=== PATIENT | male | born 1950 | race Caucasian/White ===

== ENCOUNTER 2023-09-01 15:03 | Outpatient (AMB) | payer MEDICARE, SELFPAY ==
--- NOTE | 2023-09-01 15:02 | HO.NEPHOV ---
Vital Signs 09/01/23 15:04 Height 5 ft 6 in Weight 198 lb BMI 32.0 BP 132/60 Blood Pressure Location Lt brachial Position Sitting Pulse 89 Pulse Source Pulse Oximeter Pulse Oximetry (%) 96 Oxygen Delivery Method Room Air Intake Visit Reasons: HTN, prev pt of Dr. Banuelos/ Kelvin w/Daughter Associate Art Director Required: No Accompanied by: Spouse Allergies No Known Allergies Allergy (Verified 09/01/23 15:07) HPI Comments Details: 72-year-old man with a history of resistant hypertension who has been referred for edema. He was previously seen by Dr. Banuelos. Since she has retired the family has decided to follow-up with me. Osman has had resistant hypertension for quite some time. He has undergone extensive workup. He is undergone 3 renal artery Dopplers in 2018 2021 and 2022. In 2018 there was no renal artery stenosis. In 2021 the report reads as more than 60% stenosis on the right side. However in 2022 both arteries were patent without any narrowing. 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 With compression of right L4 nerve root. Status post steroid injections. He has a lung nodule which is being monitored frequently. CT scan in 01/16/2023 revealed significant coronary artery calcification. There was moderate aortic valve calcification as well. Echocardiogram done recently at [facility] showed normal ejection fraction. Mild left ventricular hypertrophy. Mild aortic calcification. No aortic stenosis or insufficiency was reported. He has shortness of breath on exertion. He has a sit after walking 2830 ft. No cough no expectoration no chest pain. Pulmonary function test done back in 2016 was unremarkable no airway disease was noted. He has a history of smoking more than 1 pack per day for last several years. He is cut back to half a pack per day. As for the blood pressure he is on nifedipine 60 mg daily, losartan 100 mg and spironolactone 50 mg b.i.d.. Review of systems Yes shortness of breath on exertion which has been going on for last few years. No chest pain. No cough no expectoration. No nausea or vomiting. No polyuria polydipsia. He has increased frequency. No hematuria. No diarrhea constipation. No joint pain. No rash. He has bilateral breast swelling without significant pain. [facility] Social History (Updated 09/01/23 @ 15:08 by JEANINE Manning) Tobacco use type: Cigarette Physical Exam Vital Signs: Last Vital Signs Pulse 89 09/01/23 15:04 BP 132/60 09/01/23 15:04 Pulse Ox 96 09/01/23 15:04 Oxygen Delivery Method Room Air 09/01/23 15:04 BMI result Body Mass Index 32.0 Const General: comfortable Nutritional Appearance: well nourished Orientation/consciousness: patient oriented x3 HEENT Head: No normal to inspection Mouth: moist mucous membranes Neck Neck: Yes supple and Yes no JVD Chest Other: Gynecomastia present. Mild tenderness. No discharge Resp Auscultation: clear to auscultation bilaterally, no rales and rub present Cardio Jugular venous distension: no JVD Palpation: no palpable S3 and no palpable S4 Heart sounds: no rubs GI Palpation (GI): Soft to palpation and nontender Percussion: No Fluid wave present General: Yes no CVA tenderness Back/Spine/Pelvis Back: no CVA tenderness Skin General skin exam: no rashes or lesions noted Neuro General: patient oriented x3 Extrem General: Yes no pedal edema and No clubbing Results Reviewed Results Reviewed: Serum creatinine 0.99. Urine protein creatinine ratio was 0.07 in 02/16/2023. Nephrology Results: No Data to Display Assessment & Plan Assessment & Plan (1) Edema: Code(s): R60.9 - Edema, unspecified Category: Medical Plan: Edema is most likely due to calcium channel elsie. I will lower the dose of nifedipine from 60 mg down to 30 mg and see if any improvement in the leg edema If edema does not improve I will discontinue nifedipine. (2) HTN (hypertension): Code(s): I10 - Essential (primary) hypertension Category: Medical Plan: Hypertension Overall blood pressure is well controlled. However I am lowering the nifedipine from 60 mg down to 30 mg. I have encouraged him/family to monitor his blood pressure at home. Based on this if he needs additional antihypertensive agent I will consider adding hydralazine. Discussed importance of low-salt diet and smoking cessation (3) Shortness of breath: Code(s): R06.02 - Shortness of breath Category: Medical Plan: Exact etiology for his shortness of breath remains unclear. He is history of chronic smoking. However the pulmonary function test was unremarkable for any obstructive or restrictive lung disease. Recent echocardiogram revealed normal ejection fraction without evidence of significant LVH. Valves were unremarkable. The CT scan of the chest in 01/16/2023 was reported as severe coronary artery calcification. I have taken liberty of referring him for cardiac evaluation. (4) Gynecomastia: Code(s): N62 - Hypertrophy of breast Category: Medical Plan: This may be due to the use of spironolactone. Currently he is asymptomatic. Medications: New nifedipine ER 30 mg PO DAILY 30 tabs 2RF Coding Level of Care Code New Pt Level 5 (86310) Diagnoses Edema R60.9 HTN (hypertension) I10 Shortness of breath R06.02 Gynecomastia N62
[2023-09-01 15:04] VITALS: BP 132/60; PULSE 89; O2SAT 96; BMI 32.0
== END 2023-09-01 15:46 | disposition home or self-care (01) ==
PROVIDERS: PCP Internal Medicine; Visit Provider Internal Medicine Hypertension Specialist
DX: R60.9 Edema, unspecified (principal); I10 Essential (primary) hypertension; R06.02 Shortness of breath; N62 Hypertrophy of breast
CPT/HCPCS: 99204

== ENCOUNTER → 2023-09-01 15:03 | Outpatient (BNVA) | payer MEDICARE, SELFPAY | PROVIDERS: PCP Internal Medicine; Visit Provider Internal Medicine Hypertension Specialist | DX: R60.9 Edema, unspecified (principal); I10 Essential (primary) hypertension; R06.02 Shortness of breath; N62 Hypertrophy of breast | CPT/HCPCS: 99202 ==

== ENCOUNTER 2023-10-05 09:58 | Outpatient (AMB) | payer MEDICARE, SELFPAY ==
[2023-10-05 10:01] VITALS: BP 132/60; PULSE 75; O2SAT 96; BMI 32.4
--- NOTE | 2023-10-05 10:01 | HO.NEPHOV_ITS ---
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 He was previously seen by Dr. Banuelos. Since she has retired the family has decided to follow-up with me. Osman has had resistant hypertension for quite some time. He has undergone extensive workup. He is undergone 3 renal artery Dopplers in 2019 2021 and 2022. In 2019 there was no renal artery stenosis. In 2021 the report reads as more than 60% stenosis on the right side. However in 2022 both arteries were patent without any narrowing. 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 With compression of right L4 nerve root. Status post steroid injections. He has a lung nodule which is being monitored frequently. CT scan in 01/16/2023 revealed significant coronary artery calcification. There was moderate aortic valve calcification as well. Echocardiogram done recently at [facility] showed normal ejection fraction. Mild left ventricular hypertrophy. Mild aortic calcification. No aortic stenosis or insufficiency was reported. He has shortness of breath on exertion. He has a sit after walking 2830 ft. No cough no expectoration no chest pain. Pulmonary function test done back in 2016 was unremarkable no airway disease was noted. He has a history of smoking more than 1 pack per day for last several years. He is cut back to half a pack per day. As for the blood pressure he is on nifedipine 60 mg daily, losartan 100 mg and spironolactone 50 mg b.i.d.. Review of systems Yes shortness of breath on exertion which has been going on for last few years. No chest pain. No cough no expectoration. No nausea or vomiting. No polyuria polydipsia. He has increased frequency. No hematuria. No diarrhea constipation. No joint pain. No rash. He has bilateral breast swelling without significant pain. 10/05/2023. He was accompanied by his family. After lowering nifedipine there has been no improvement in the leg edema. No shortness of breath at rest however he has shortness of breath on exertion Continue smoked cigarettes up to 10 a day. [facility] Social History Tobacco use type: Cigarette Physical Exam Vital Signs: Last Vital Signs Pulse 75 10/05/23 10:01 BP 132/60 10/05/23 10:01 Pulse Ox 96 10/05/23 10:01 Oxygen Delivery Method Room Air 10/05/23 10:01 BMI result Body Mass Index 32.4 Const General: comfortable Nutritional Appearance: well nourished Orientation/consciousness: patient oriented x3 HEENT Head: No normal to inspection Mouth: moist mucous membranes Neck Neck: Yes supple and Yes no JVD Chest Other: Gynecomastia present. Mild tenderness. No discharge Resp Auscultation: clear to auscultation bilaterally, no rales and rub present Cardio Jugular venous distension: no JVD Palpation: no palpable S3 and no palpable S4 Heart sounds: no rubs GI Palpation (GI): Soft to palpation and nontender Percussion: No Fluid wave present General: Yes no CVA tenderness Back/Spine/Pelvis Back: no CVA tenderness Skin General skin exam: no rashes or lesions noted Neuro General: patient oriented x3 Extrem General: Yes no pedal edema and No clubbing Results Reviewed Nephrology Results: No Data to Display Assessment & Plan Assessment & Plan (1) Edema: Code(s): R60.9 - Edema, unspecified Category: Medical Plan: Edema is most likely due to calcium channel elsie. (2) HTN (hypertension): Code(s): I10 - Essential (primary) hypertension Category: Medical Plan: Hypertension Overall blood pressure is well controlled. Discussed importance of low-salt diet and smoking cessation (3) Shortness of breath: Code(s): R06.02 - Shortness of breath Category: Medical Plan: Exact etiology for his shortness of breath remains unclear. He is history of chronic smoking. However the pulmonary function test was unremarkable for any obstructive or restrictive lung disease. Recent echocardiogram revealed normal ejection fraction without evidence of significant LVH. Valves were unremarkable. The CT scan of the chest in 01/16/2023 was reported as severe coronary artery calcification. Await cardiac evaluation. (4) Gynecomastia: Code(s): N62 - Hypertrophy of breast Category: Medical Plan: This may be due to the use of spironolactone. Currently he is asymptomatic. Orders: Referrals Cardiology Referral I25.10 - Atherosclerotic heart disease of [place] coronary artery without angina pectoris, R06.02 - Shortness of breath, R60.9 - Edema, unspecified Coding Level of Care Code Est Pt Level 4 (57271) Diagnoses Edema R60.9 HTN (hypertension) I10 Shortness of breath R06.02 Gynecomastia N62
== END 2023-10-05 10:19 | disposition home or self-care (01) ==
PROVIDERS: PCP Internal Medicine; Visit Provider Internal Medicine Hypertension Specialist
DX: R60.9 Edema, unspecified (principal); I10 Essential (primary) hypertension; R06.02 Shortness of breath; N62 Hypertrophy of breast
CPT/HCPCS: 99214

== ENCOUNTER → 2023-10-05 09:58 | Outpatient (BNVA) | payer MEDICARE, SELFPAY | PROVIDERS: PCP Internal Medicine; Visit Provider Internal Medicine Hypertension Specialist | DX: I10 Essential (primary) hypertension (principal); R60.9 Edema, unspecified; R06.02 Shortness of breath; N62 Hypertrophy of breast | CPT/HCPCS: 99212 ==

== ENCOUNTER 2023-12-31 09:44 | Outpatient (AMB) | payer MEDICARE, SELFPAY ==
[2023-12-31 09:48] VITALS: BP 146/72; PULSE 95; O2SAT 97; BMI 31.5
--- NOTE | 2023-12-31 09:48 | HO.NEPHOV ---
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 He was previously seen by Dr. Banuelos. Since she has retired the family has decided to follow-up with me. Osman has had resistant hypertension for quite some time. He has undergone extensive workup. He is undergone 3 renal artery Dopplers in 2018 2021 and 2022. In 2019 there was no renal artery stenosis. In 2021 the report reads as more than 60% stenosis on the right side. However in 2022 both arteries were patent without any narrowing. 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 With compression of right L4 nerve root. Status post steroid injections. He has a lung nodule which is being monitored frequently. CT scan in 01/16/2023 revealed significant coronary artery calcification. There was moderate aortic valve calcification as well. Echocardiogram done recently at [facility] showed normal ejection fraction. Mild left ventricular hypertrophy. Mild aortic calcification. No aortic stenosis or insufficiency was reported. He has shortness of breath on exertion. He has a sit after walking 2830 ft. No cough no expectoration no chest pain. Pulmonary function test done back in 2016 was unremarkable no airway disease was noted. He has a history of smoking more than 1 pack per day for last several years. He is cut back to half a pack per day. As for the blood pressure he is on nifedipine 60 mg daily, losartan 100 mg and spironolactone 50 mg b.i.d.. Review of systems Yes shortness of breath on exertion which has been going on for last few years. No chest pain. No cough no expectoration. No nausea or vomiting. No polyuria polydipsia. He has increased frequency. No hematuria. No diarrhea constipation. No joint pain. No rash. He has bilateral breast swelling without significant pain. 10/05/2023. He was accompanied by his family. After lowering nifedipine there has been no improvement in the leg edema. No shortness of breath at rest however he has shortness of breath on exertion Continue smoked cigarettes up to 10 a day. 12/31/2023. Accompanied by his family. He still has shortness of breath on exertion. No change in leg edema. He continues to smoke up to 10 cigarettes a day [facility] Social History Tobacco use type: Cigarette Physical Exam Vital Signs: Last Vital Signs Pulse 95 12/31/23 09:48 BP 132/64 12/31/23 10:01 Pulse Ox 97 12/31/23 09:48 Oxygen Delivery Method Room Air 12/31/23 09:48 BMI result Body Mass Index 31.5 Const General: comfortable; No acute distress Orientation/consciousness: patient oriented x3 Eyes General: appearance normal, both eyes and all related structures Visual Pierce: normal visual pierce by confrontation Neck Neck: Yes supple and Yes no JVD Resp Effort & Inspection: normal respiratory effort and respiratory effort not decreased Auscultation: rhonchi Cardio Palpation: no palpable S3 and no palpable S4 Heart sounds: no rubs GI Inspection: Yes normal to inspection Palpation (GI): Soft to palpation Percussion: Yes normal to percussion Auscultation: normal bowel sounds General: Yes no CVA tenderness Back/Spine/Pelvis Back: no CVA tenderness Skin General skin exam: no petechiae and no purpura Neuro General: patient oriented x3 and no focal motor deficits Extrem General: No clubbing and Yes edema (1+) Results Reviewed Results Reviewed: Recent creatinine 0.88 Nephrology Results: No Data to Display Assessment & Plan Assessment & Plan (1) Edema: Code(s): R60.9 - Edema, unspecified Category: Medical Plan: Edema is most likely due to calcium channel elsie. (2) HTN (hypertension): Code(s): I10 - Essential (primary) hypertension Category: Medical Plan: Hypertension Overall blood pressure is well controlled. Discussed importance of low-salt diet and smoking cessation (3) Shortness of breath: Code(s): R06.02 - Shortness of breath Category: Medical Plan: He is history of chronic smoking. However the pulmonary function test was unremarkable for any obstructive or restrictive lung disease. Recent echocardiogram revealed normal ejection fraction without evidence of significant LVH. Valves were unremarkable. The CT scan of the chest in 01/16/2023 was reported as severe coronary artery calcification. Shall add Lasix 20 mg p.o. daily Await cardiac evaluation. (4) Gynecomastia: Code(s): N62 - Hypertrophy of breast Category: Medical Plan: This may be due to the use of spironolactone. Currently he is asymptomatic. Orders: Orders Basic Metabolic Panel 6 Months R06.02 - Shortness of breath, R60.9 - Edema, unspecified Medications: New furosemide (Lasix) 20 mg PO DAILY 90 tabs 1RF Coding Level of Care Code Est Pt Level 4 (35951) Diagnoses Edema R60.9 HTN (hypertension) I10 Shortness of breath R06.02 Gynecomastia N62
[2023-12-31 10:01] VITALS: BP 132/64
== END 2023-12-31 10:08 | disposition home or self-care (01) ==
PROVIDERS: PCP Internal Medicine; Visit Provider Internal Medicine Hypertension Specialist
DX: R60.9 Edema, unspecified (principal); I10 Essential (primary) hypertension; R06.02 Shortness of breath; N62 Hypertrophy of breast
CPT/HCPCS: 99213

== ENCOUNTER → 2023-12-31 09:44 | Outpatient (BNVA) | payer MEDICARE, SELFPAY | PROVIDERS: PCP Internal Medicine; Visit Provider Internal Medicine Hypertension Specialist | DX: I10 Essential (primary) hypertension (principal); R60.9 Edema, unspecified; R06.02 Shortness of breath; N62 Hypertrophy of breast | CPT/HCPCS: 99212 ==

== ENCOUNTER 2024-01-06 08:16 | Outpatient (AMB) | payer MEDICARE, SELFPAY ==
[2024-01-06 08:30] VITALS: BP 160/70; PULSE 76; BMI 30.9
--- NOTE | 2024-01-06 08:30 | MHC.OFFVIS ---
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 Disease Mechanical Maintenance Supervisor Required: No Mechanical Maintenance Supervisor Services: Mechanical Maintenance Supervisor Offered & Declined Mechanical Maintenance Supervisor Name: Radha-daughter Accompanied by: Spouse Allergies No Known Allergies Allergy (Verified 12/31/23 09:52) Medication List - Last Reconciled 01/06/24 by Nando Bowen MD aspirin 81 mg PO DAILY bupropion HCl XL 150 mg PO QAM finasteride 5 mg PO DAILY furosemide (Lasix) 20 mg PO DAILY losartan 100 mg PO DAILY metformin 500 mg PO DAILY nifedipine ER 30 mg PO DAILY omeprazole 20 mg PO DAILY simvastatin 20 mg PO BEDTIME spironolactone 50 mg PO BID tamsulosin 0.4 mg PO DAILY HPI Comments Details: Osman is here for consultation regarding leg swelling and shortness of breath. Patient speaks Greenlandic only and family is assisting with interpretation. Essentially, no previous cardiac history including coronary disease or myocardial infarction or cardiomyopathy or anything along those lines. Chronic smoker and still smokes. However, not known to have any COPD per family. For the last several years, he has felt short of breath with activity. In fact any form of activity makes him short of breath. No anginal-type symptoms. He has also been having some leg swelling over the last few months. Nephrology as put him on some Lasix and after that he has felt better. Otherwise, he also underwent a chest CT scan due to smoking history and that shows coronary calcification. [facility] Surgical History (Updated 01/06/24 @ 08:58 by Nando Bowen MD) History of cholecystectomy History of appendectomy Family History (Updated 01/06/24 @ 08:39 by Francesca Mckeon CMA) Brother Stroke Social History (Updated 01/06/24 @ 08:39 by Francesca Mckeon CMA) Alcohol intake: current Alcohol intake frequency: holidays/special occasions only Tobacco use type: Cigarette Review of Systems Const Denies chills, Denies daytime sleepiness, Denies fatigue, Denies fever(s), Denies poor appetite, Denies snoring, Denies stops breathing during sleep, Denies weakness, Denies weight gain and Denies weight loss Eyes Denies loss of vision ENT Denies dizziness and Denies hearing loss Card Denies chest pain, Denies irregular heart rhythm, Denies claudication, Reports leg edema, Denies lightheadedness, Denies palpitations, Reports dyspnea, Denies dyspnea on exertion and Denies orthopnea Resp Denies cough, Denies excessive phlegm production, Reports dyspnea, Denies dyspnea on exertion, Denies snoring and Denies wheezing GI Denies abdominal pain, Denies hematochezia, Denies change in bowel habits, Denies nausea and Denies vomiting Denies dysuria and Denies urinary frequency Musc Denies arthralgias, Denies muscle weakness, Denies numbness and Denies other Skin/Breast Denies nail changes and Denies rash Neuro Denies Abnormal speech present, Denies dizziness, Denies loss of vision, Denies memory loss, Denies numbness and Denies weakness Psych Denies depression and Denies memory loss Endo Denies fatigue and Denies palpitations Titi/Lymph Denies easy bruising Aller/Immun Denies wheezing Physical Exam Vital Signs: Last Vital Signs Pulse 76 01/06/24 08:30 BP 160/70 H 01/06/24 08:30 BMI result Body Mass Index 30.9 Const General: comfortable and no acute distress Orientation/consciousness: patient oriented x3 HEENT Other: Unremarkable Head: Yes normal to inspection Neck Neck: Yes normal visual inspection Chest Chest palpation & inspection: normal inspection of the chest Resp Auscultation: clear to auscultation bilaterally Cardio Palpation: normal PMI Heart sounds: S1 normal heart sound present, S2 normal heart sound present, no gallops, Murmur heart sound present systolic II/ and at the right sternal border and no rubs GI Palpation (GI): Soft to palpation Back/Spine/Pelvis Other: unremarkable Skin General skin exam: no rashes or lesions noted Neuro General: patient oriented x3 Speech: No Abnormal speech present Extrem General: Yes normal to inspection Psych Mental Status: mental status grossly normal Office Procedures EKG Details: EKG with underlying sinus rhythm at 76/Min; [place] prolongation to 110 milliseconds; normal corrected QT; no significant ST-T changes. [id number], Complete Assessment & Plan Assessment & Plan (1) Edema: Code(s): R60.9 - Edema, unspecified Category: Medical Plan: In the echocardiogram from [facility], LVEF is 55-65%. Diastolic function was not assessed. Right ventricle with normal size and systolic function with normal right atrial size. IVC described to be of normal size with normal inspiratory collapse. Based on this, no clear evidence of elevated right heart filling pressures. Hence suspect the leg swelling is probably not cardiac in nature. Could be related to medications like nifedipine as well as venous insufficiency. Try compression stockings. Okay to continue low-dose Lasix. (2) Coronary artery calcification: Code(s): I25.10 - Atherosclerotic heart disease of [place] coronary artery without angina pectoris Category: Medical Plan: Chest CT scan shows severe coronary artery calcification as well as moderate aortic calcification. We discussed about this today. He does not have any clear-cut angina. Will perform an exercise stress perfusion imaging study. Daughter states that she will assist with the test as he does not speak Turkish. If unable to do, consider Lexiscan. (3) HTN (hypertension): Code(s): I10 - Essential (primary) hypertension Category: Medical Plan: Current meds include losartan, nifedipine, spironolactone. Blood pressure is already actively addressed by Nephrology and hence no changes made today. Orders: Orders CA stress test Today R07.2 - Precordial pain NM cardiolite stress test Today R07.2 - Precordial pain Coding Level of Care Code New Pt Level 4 (54830) Diagnoses Edema R60.9 Coronary artery calcification I25.10 HTN (hypertension) I10 CPT Codes EKG - CPT: 85066-[id number], Complete ([id number])
== END 2024-01-06 09:04 | disposition home or self-care (01) ==
PROVIDERS: PCP Internal Medicine; Visit Provider Internal Medicine
DX: R60.9 Edema, unspecified (principal); I25.10 Atherosclerotic heart disease of native coronary artery without angina pectoris; I10 Essential (primary) hypertension
CPT/HCPCS: 93010; 99204

== ENCOUNTER → 2024-01-06 08:16 | Outpatient (BNVA) | payer MEDICARE, SELFPAY | PROVIDERS: PCP Internal Medicine; Visit Provider Internal Medicine | DX: I25.10 Atherosclerotic heart disease of native coronary artery without angina pectoris (principal); I10 Essential (primary) hypertension; R07.2 Precordial pain; R06.02 Shortness of breath; R60.9 Edema, unspecified; F17.210 Nicotine dependence, cigarettes, uncomplicated; Z79.899 Other long term (current) drug therapy | CPT/HCPCS: 93005; 99202 ==

== ENCOUNTER → 2024-03-25 07:58 | Outpatient (REF) | payer MEDICARE, SELFPAY ==
--- NOTE | ~2024-03-25 | NM_ITS ---
EXERCISE MYOCARDIAL PERFUSION STUDY INDICATION: Precordial chest pain TECHNIQUE: The patient was brought in for an exercise perfusion study on 03/25/2024. Patient performed exercise as per Dawson protocol and was injected 30 mCi of sestamibi once target heart rate was achieved. Images were obtained using the SPECT gamma camera interlaced with the gating device. Images were obtained in supine position. Resting perfusion study was performed on 03/29/2024. Patient was administered 30 mCi of sestamibi intravenously at rest. Images were then obtained in supine position. Images obtained without without CT attenuation. Total DLP 93 mGy-cm. Images were processed with the software and compared side to side in short axis, horizontal long axis and vertical long axis views. FINDINGS: Raw images were reviewed The stress perfusion study showed nonattenuated images show mildly reduced uptake in the basal inferior and inferoseptal LV myocardium. Attenuated corrected images show normal uptake of radiotracer in all segments of the LV myocardium. The gated study shows normal LV systolic function with calculated LVEF of 67%. LV cavity is normal in size. The gated study shows normal systolic wall thickening and contraction of segments. Resting study shows no change in perfusion pattern compared to stress perfusion study. Gating at rest reveals normal systolic wall motion with ejection fraction at greater than 60%. The findings are consistent with no reversible defect suggestive of ischemia. NM/NM cardiolite stress test IMPRESSION: 1. Myocardial perfusion imaging study shows normal myocardial perfusion. 2. Gated LVEF is 67%. 3. Transient ischemic dilatation not present. EKG revealed equivocal for ischemia in the vocal for ischemia. Electronically signed by: Moris Spivey MD 03/30/2024 11:54 AM [facility]
--- NOTE | 2024-03-25 08:03 | CA_ITS ---
Acquisition Time: 2024-03-25 08:17:01 Total Exercise Time: 00:05:01 Test Indications: Dyspnea LEG EDEMA Medications: ASA BUPRION FINASTERIDE FUROSEMIDE METFORMIN NIFEDIPINE OMEPRAZOLE TAMSULOSIN SPIRONALACTONE Protocol: GARTH Max HR: 130 BPM 90% of Pred: 144 BPM Max BP: 180/068 mmHG Max Work Load: 4.0 METS Exercise Stress Test with exercise 5 mins 1 secs of Garth protocol, held at stage 1, that required modification as soon as pt started walking on the tread due to hard time walking, speed at 1.4mph with 10% incline, achieving 88% MPHR, without any anginal symptoms, without any arrythmias, with normotensive response to exercise. With downsloping ST changes noted in V6 only with exercise, had baseline nonspecific ST abnormalities. Nuclear images pending. Test reviewed with Dr. Stevenson. Referred By: Nando Bowen Overread By: Mykel Alvarez
== END ==
LOC: HO.CARD 07:58
PROVIDERS: PCP Internal Medicine; Visit Provider Internal Medicine
DX: R07.2 Precordial pain (principal)
CPT/HCPCS: 78452; 93017; A9500

== ENCOUNTER → 2024-03-25 08:03 | Outpatient (BNV) | payer MEDICARE, SELFPAY | PROVIDERS: PCP Internal Medicine | DX: R06.02 Shortness of breath (principal) | CPT/HCPCS: 78452; 93016; 93018 ==

== ENCOUNTER 2024-04-28 14:59 | Outpatient (AMB) | payer MEDICARE, SELFPAY ==
[2024-04-28 15:02] VITALS: BP 168/62; PULSE 87; BMI 31.6
--- NOTE | 2024-04-28 15:02 | MHC.OFFVIS ---
Vital Signs 04/28/24 15:02 Height 5 ft 6 in Weight 195 lb 12.328 oz BMI 31.6 BP 168/62 H Blood Pressure Location Lt brachial Position Sitting Pulse 87 Pulse Source Pulse Oximeter Intake Visit Reasons: r/s 03/14/24 followup after jenae Data Reporting Analyst Required: Yes Data Reporting Analyst Services: Data Reporting Analyst Offered & Declined Data Reporting Analyst Name: Daughter Accompanied by: Daughter Allergies No Known Allergies Allergy (Verified 12/31/23 09:52) Medication List - Last Reconciled 04/28/24 by Nando Bowen MD aspirin 81 mg PO DAILY bupropion HCl XL 150 mg PO QAM finasteride 5 mg PO DAILY furosemide (Lasix) 20 mg PO DAILY losartan 100 mg PO DAILY metformin 500 mg PO DAILY nifedipine ER 30 mg PO DAILY omeprazole 20 mg PO DAILY simvastatin 20 mg PO BEDTIME spironolactone 50 mg PO BID tamsulosin 0.4 mg PO DAILY HPI Comments Details: Osman returns for follow-up. Recently seen in consultation regarding leg swelling and shortness of breath. Patient only speaks Austrian and daughter is accompanying him for interpretation. Essentially, no previous cardiac history including coronary disease or myocardial infarction or cardiomyopathy or anything along those lines. Chronic smoker and still smokes. However, not known to have any COPD per family. For the last several years, he has felt short of breath with activity. No anginal-type symptoms. He has also been having some leg swelling over the last few months. Nephrology as put him on some Lasix and after that he has felt better. Otherwise, he also underwent a chest CT scan due to smoking history and that shows coronary calcification. Since last seen, he has completed a stress test. No new concerns. No angina. [facility] Surgical History History of cholecystectomy History of appendectomy Family History Brother Stroke Social History Alcohol intake: current Alcohol intake frequency: holidays/special occasions only Tobacco use type: Cigarette Review of Systems Const Denies chills, Denies fatigue, Denies fever(s), Denies weight gain and Denies weight loss ENT Denies dizziness Card Denies chest pain, Denies leg edema, Denies lightheadedness, Denies palpitations, Denies dyspnea on exertion, Denies orthopnea and Denies other Resp Denies cough and Denies dyspnea on exertion GI Denies hematochezia and Denies change in stool character Musc Denies abnormal gait, Denies muscle weakness, Denies numbness, Denies radiating pain into limb and Denies tingling Neuro Denies abnormal gait, Denies dizziness, Denies numbness and Denies tingling Endo Denies fatigue and Denies palpitations Physical Exam Vital Signs: Last Vital Signs Pulse 87 04/28/24 15:02 BP 168/62 H 04/28/24 15:02 BMI result Body Mass Index 31.6 Const General: comfortable and no acute distress Orientation/consciousness: patient oriented x3 HEENT Other: Unremarkable Head: Yes normal to inspection Neck Neck: Yes normal visual inspection Chest Chest palpation & inspection: normal inspection of the chest Resp Auscultation: rhonchi Cardio Palpation: normal PMI Heart sounds: S1 normal heart sound present, S2 normal heart sound present, no gallops, Murmur heart sound present systolic II/ and at the right sternal border and no rubs GI Palpation (GI): Soft to palpation Back/Spine/Pelvis Other: unremarkable Skin General skin exam: no rashes or lesions noted Neuro General: patient oriented x3 Extrem Other: 1+ edema General: Yes normal to inspection Psych Mental Status: mental status grossly normal Assessment & Plan Assessment & Plan (1) Coronary artery calcification: Code(s): I25.10 - Atherosclerotic heart disease of [place] coronary artery without angina pectoris Category: Medical Plan: Chest CT scan shows severe coronary artery calcification as well as moderate aortic calcification. In the exercise stress test, he was able to do 4 METS on Dawson protocol; reached 90% of target heart rate. No angina. No definitive EKG evidence of ischemia. Perfusion part was also unremarkable. Clinically, he does not get any angina. Treat for stable CAD. Continue aspirin and statins. We need to get lipids from PCP. If necessary, can switch to high-dose Lipitor or Crestor. (2) HTN (hypertension): Code(s): I10 - Essential (primary) hypertension Category: Medical Plan: Current meds include losartan, nifedipine, spironolactone. It seems the nifedipine dose was decreased because of leg swelling. Add carvedilol. He does have some wheezing but not much. Hopefully can tolerate. Not much of options otherwise. Asked daughter to contact us with home blood pressure readings. May need further adjustments. (3) Edema: Code(s): R60.9 - Edema, unspecified Category: Medical Plan: In the echocardiogram from [facility], LVEF is 55-65%. Diastolic function was not assessed. Right ventricle with normal size and systolic function with normal right atrial size. IVC described to be of normal size with normal inspiratory collapse. Based on this, no clear evidence of elevated right heart filling pressures. Hence suspect the leg swelling is probably not cardiac in nature. Could be related to medications like nifedipine as well as venous insufficiency. He remains on low-dose Lasix. May try compression stockings. Plan Discussed with daughter who came for appointment. Medications: New carvedilol (Coreg) 6.25 mg PO BID 180 tabs 1RF 90 days Coding Level of Care Code Est Pt Level 4 (39586) Diagnoses Coronary artery calcification I25.10 HTN (hypertension) I10 Edema R60.9
--- OUTSIDE RECORDS SUMMARY | 2024-04-28 18:53 | XMS_ITS | Clinical Summary ---
Author Organization [facility] Address [address] [address] Phone Care Team Providers Care Black Top Raker Name Role Phone Cedrick Terrazas Primary Care Provider [phone] Allergies No known active allergies Medications aspirin (ST TERESA) 81 MG EC tablet Take 81 mg by mouth 1 (one) time each day Active tamsulosin (FLOMAX) 0.4 MG 24 hr capsule Take 0.4 mg by mouth 1 (one) time each day Active simvastatin (ZOCOR) 20 MG tablet Take 20 mg by mouth every night Active metFORMIN (GLUCOPHAGE) 500 MG tablet Take 500 mg by mouth 1 (one) time each day with breakfast Active omeprazole (PriLOSEC) [address] capsule Take by mouth 1 (one) time each day 2 Active finasteride (PROSCAR) 5 MG tablet Take 5 mg by mouth 1 (one) time each day 2 Active losartan (COZAAR) 100 MG tablet TAKE 1 TABLET BY MOUTH 1 TIME EACH DAY. 90 tablet 3 3 Active spironolactone (ALDACTONE) 50 MG tablet TAKE 1 TABLET BY MOUTH 1 TIME EACH DAY. 90 tablet 3 3 Active NIFEdipine CC (ADALAT CC) 60 MG 24 hr tablet TAKE 1 TABLET BY MOUTH ONCE DAILY BEFORE BREAKFAST *DO NOT CRUSH/CHEW/SPL IT* 90 tablet 3 3 Active Active Problems Problem Noted Date Diagnosed Date Type 2 diabetes mellitus without complication Murmur 02/23/2023 Renal artery stenosis 02/04/2022 Hypokalemia 07/15/2021 Hypercholesterolemia 07/10/2021 Essential (primary) hypertension 07/10/2021 Family History Medical History Relation Comments Heart disease Father Hypertension Father Heart disease Mother Hypertension Mother Diabetes Sister Heart disease Sister Hypertension Sister Relation Status Comments Father Mother Sister Alive Social History Tobacco Use Types Packs/Day Years Used Date Smoking Tobacco: Some Days Cigarettes Smokeless Tobacco: Never Tobacco Cessation:Ready to Q uit: Not Asked; Counseling Given: Not Answered Alcohol Use Standard Drinks/Week Comments Yes 2 (1 standard drink = 0.6 oz pure alcohol) 1 glass of wine with lunch and dinner Sex and Gender Information Value Date Recorded Sex Assigned at Not on file Legal Sex Male 4:03 PM EDT Gender Identity Not on file Sexual Orientation Not on file Last Filed Vital Signs Vital Sign Reading Time Taken Comments Blood Pressure 136/62 02/23/2023 8:55 AM EST Pulse 98 02/23/2023 8:55 AM EST Temperature - - Respiratory Rate - - Oxygen Saturation 100% 02/23/2023 8:55 AM EST Inhaled Oxygen Concentration - - Weight 88.1 kg (194 lb 3.2 oz) 02/23/2023 8:55 A M EST Height 167.6 cm (5' 6 ) 02/23/2023 8:55 AM EST Body Mass Index 31.34 02/23/2023 8:55 AM EST Plan of Treatment Health Maintenance Due Date Last Done Comments Pneumococcal Vaccine: 65+ Ye ars (1 of 2 - PCV) 1956 Diabetes: Hemoglobin A1C 02/23/2023 Diabetes: Ophthalmology Exam 02/23/2023 Diabetes: Pedal Pulse Checked 02/23/2023 Diabetes: Sensory Foot Exam 02/23/2023 Diabetes: Visual Foot Exam 02/23/2023 Influenza Vaccine (#1) 2023 Hepatitis B Vaccine Aged Out No longe r eligible based on patient's age to complete this topic [place] [address] [place] [address] Care Teams Black Top Raker Relationship Specialty Start Date End Date Cedrick Terrazas DO [address] [place] [address] PCP - General Internal Medicine 06/25/21
== END 2024-04-28 15:27 | disposition home or self-care (01) ==
PROVIDERS: PCP Internal Medicine; Visit Provider Internal Medicine
DX: I25.10 Atherosclerotic heart disease of native coronary artery without angina pectoris (principal); I10 Essential (primary) hypertension; R60.9 Edema, unspecified
CPT/HCPCS: 99214

== ENCOUNTER → 2024-04-28 14:59 | Outpatient (BNVA) | payer MEDICARE, SELFPAY | PROVIDERS: PCP Internal Medicine; Visit Provider Internal Medicine | DX: I25.10 Atherosclerotic heart disease of native coronary artery without angina pectoris (principal); I10 Essential (primary) hypertension; R60.9 Edema, unspecified; F17.210 Nicotine dependence, cigarettes, uncomplicated | CPT/HCPCS: 99212 ==

== ENCOUNTER 2024-06-15 07:49 | Outpatient (REF) | payer MEDICARE, SELFPAY ==
[2024-06-15 09:02] LABS: Anion Gap 10 (12-20); Blood Urea Nitrogen 15 mg/dL (9-16); Calcium 9.5 mg/dL (8.4-10.2); Carbon Dioxide 30 mmol/L (22-29); Chloride 105 mmol/L (96-108); Estimated Glomerular Filt Rate > 60; Glucose Random 146 mg/dL (60-115); Potassium 3.4 mmol/L (3.3-5.1); Sodium 142 mmol/L (135-145)
== END 2024-06-15 07:50 | disposition home or self-care (01) ==
LOC: HO.LAB 07:49
PROVIDERS: Internal Medicine; PCP Internal Medicine; Visit Provider Internal Medicine Hypertension Specialist
DX: I25.10 Atherosclerotic heart disease of native coronary artery without angina pectoris (principal); I10 Essential (primary) hypertension; R60.9 Edema, unspecified
CPT/HCPCS: 36415; 80048

== ENCOUNTER 2024-07-14 14:54 | Outpatient (AMB) | payer MEDICARE, SELFPAY ==
--- NOTE | 2024-07-14 15:02 | HO.NEPHOV_ITS ---
Vital Signs 07/14/24 15:03 Height 5 ft 6 in BP 128/68 Blood Pressure Location Lt brachial Position Sitting Pulse 77 Pulse Source Pulse Oximeter Pulse Oximetry (%) 97 Oxygen Delivery Method Room Air Intake Visit Reasons: Edema/LVM Counter Top Maker Required: No Accompanied by: Daughter Allergies No Known Allergies Allergy (Verified 07/14/24 15:05) Medication List - Last Reconciled 07/14/24 by Nick Castellanos MD aspirin 81 mg PO DAILY atorvastatin (Lipitor) 80 mg PO QPM bupropion HCl XL 150 mg PO QAM carvedilol (Coreg) 6.25 mg PO BID 90 days finasteride 5 mg PO DAILY furosemide 20 mg PO DAILY losartan 100 mg PO DAILY metformin 500 mg PO DAILY nifedipine ER 30 mg PO DAILY omeprazole 20 mg PO DAILY spironolactone 50 mg PO BID tamsulosin 0.4 mg PO DAILY Do you need a note to return to daycare/school/sports/work: No HPI Comments Details: 72-year-old man with a history of resistant hypertension who has been referred for edema. He was previously seen by Dr. Banuelos. Since she has retired the family has decided to follow-up with me. Osman has had resistant hypertension for quite some time. He has undergone extensive workup. He is undergone 3 renal artery Dopplers in 2018 2021 and 2022. In 2019 there was no renal artery stenosis. In 2021 the report reads as more than 60% stenosis on the right side. However in 2022 both arteries were patent without any narrowing. 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 With compression of right L4 nerve root. Status post steroid injections. He has a lung nodule which is being monitored frequently. CT scan in 01/16/2023 revealed significant coronary artery calcification. There was moderate aortic valve calcification as well. Echocardiogram done [facility] at [facility] showed normal ejection fraction. Mild left ventricular hypertrophy. Mild aortic calcification. No aortic stenosis or insufficiency was reported. He has shortness of breath on exertion. He has a sit after walking 2830 ft. No cough no expectoration no chest pain. Pulmonary function test done back in 2016 was unremarkable no airway disease was noted. He has a history of smoking more than 1 pack per day for last several years. He is cut back to half a pack per day. As for the blood pressure he is on nifedipine 60 mg daily, losartan 100 mg and spironolactone 50 mg b.i.d.. Review of systems Yes shortness of breath on exertion which has been going on for last few years. No chest pain. No cough no expectoration. No nausea or vomiting. No polyuria polydipsia. He has increased frequency. No hematuria. No diarrhea constipation. No joint pain. No rash. He has bilateral breast swelling without significant pain. 10/05/2023. He was accompanied by his family. After lowering nifedipine there has been no improvement in the leg edema. No shortness of breath at rest however he has shortness of breath on exertion Continue smoked cigarettes up to 10 a day. 12/31/2023. Accompanied by his family. He still has shortness of breath on exertion. No change in leg edema. He continues to smoke up to 10 cigarettes a day 07/14/24 Dyspnea on exertion/ wheeze PFSH Surgical History History of cholecystectomy History of appendectomy Family History Brother Stroke Social History Alcohol intake: current Alcohol intake frequency: holidays/special occasions only Tobacco use type: Cigarette Results Reviewed Nephrology Results: Sodium 142 mmol/L (135-145) 06/15/24 Potassium 3.4 mmol/L (3.3-5.1) 06/15/24 Chloride 105 mmol/L (96-108) 06/15/24 Carbon Dioxide 30 mmol/L (22-29) H 06/15/24 BUN 15 mg/dL (9-16) 06/15/24 Creatinine 0.81 mg/dL (0.5-1.4) 06/15/24 Calcium 9.5 mg/dL (8.4-10.2) 06/15/24 Assessment & Plan Assessment & Plan (1) Edema: Code(s): R60.9 - Edema, unspecified Category: Medical Plan: Edema is most likely due to calcium channel elsie. (2) HTN (hypertension): Code(s): I10 - Essential (primary) hypertension Category: Medical Plan: Hypertension Overall blood pressure is well controlled. Discussed importance of low-salt diet and smoking cessation (3) Shortness of breath: Code(s): R06.02 - Shortness of breath Category: Medical Plan: He is history of chronic smoking. However the pulmonary function test was unremarkable for any obstructive or restrictive lung disease. Recent echocardiogram revealed normal ejection fraction without evidence of significant LVH. Valves were unremarkable. The CT scan of the chest in 01/16/2023 was reported as severe coronary artery calcification. Shall add Lasix 20 mg p.o. daily (4) Gynecomastia: Code(s): N62 - Hypertrophy of breast Category: Medical Plan: This may be due to the use of spironolactone. Currently he is asymptomatic. Medications: New spironolactone 50 mg PO BID 180 tabs 2RF losartan 100 mg PO DAILY 90 tabs 2RF Refilled atorvastatin (Lipitor) 80 mg PO QPM 90 tabs 3RF carvedilol (Coreg) 6.25 mg PO BID 90 days 180 tabs 1RF furosemide 20 mg PO DAILY 90 tabs 1RF nifedipine ER 30 mg PO DAILY 90 tabs 2RF Coding Level of Care Code Est Pt Level 4 (54499) Diagnoses Edema R60.9 HTN (hypertension) I10 Shortness of breath R06.02 Gynecomastia N62
[2024-07-14 15:03] VITALS: BP 128/68; PULSE 77; O2SAT 97
--- OUTSIDE RECORDS SUMMARY | 2024-07-14 17:46 | XMS_ITS | Clinical Summary ---
Author Organization [facility] Address [address] [address] Phone Care Team Providers Care Payable Processor Name Role Phone Cedrick Terrazas Primary Care Provider [phone] Allergies No known active allergies Medications aspirin [...] Due Date Last Done Comments Pneumococcal Vaccine: 50+ Ye ars (1 of 2 - PCV) 1969 Diabetes: Hemoglobin A1C 02/23/2023 Diabetes: Ophthalmology Exam 02/23/2023 Diabetes: Pedal Pulse Checked 02/23/2023 Diabetes: Sensory Foot Exam 02/23/2023 Diabetes: Visual Foot Exam 02/23/2023 Influenza Vaccine (Season Ended) 2024 Hepatitis B Vaccine Aged Out No longe r eligible based on patient's age to complete this topic Insurance [facility] [place] [address] Care Teams Payable Processor Relationship Specialty Start Date End Date Cedrick Terrazas DO [address] [place] [address] PCP - General Internal Medicine 06/25/21
== END 2024-07-14 15:19 | disposition home or self-care (01) ==
LOC: HO.HKA 14:55
PROVIDERS: PCP Internal Medicine; Visit Provider Internal Medicine Hypertension Specialist
DX: R60.9 Edema, unspecified (principal); I10 Essential (primary) hypertension; R06.02 Shortness of breath; N62 Hypertrophy of breast
CPT/HCPCS: 99214

== ENCOUNTER → 2024-07-14 14:54 | Outpatient (BNVA) | payer MEDICARE, SELFPAY | PROVIDERS: PCP Internal Medicine; Visit Provider Internal Medicine Hypertension Specialist | DX: R60.9 Edema, unspecified (principal); I10 Essential (primary) hypertension; R06.02 Shortness of breath; N62 Hypertrophy of breast | CPT/HCPCS: 99212 ==

== ENCOUNTER 2024-07-21 08:42 | Outpatient (REF) | payer MEDICARE, SELFPAY ==
--- OUTSIDE RECORDS SUMMARY | 2024-07-21 09:10 | XMS_ITS | Clinical Summary ---
Author Organization [facility] Address [address] [address] Phone Care Team Providers Care Towel Sorter Name Role Phone Cedrick Terrazas Primary Care Provider [phone] Allergies No known active allergies Medications aspirin [...] patient's age to complete this topic Insurance [facility] [place] [address] Care Teams Towel Sorter Relationship Specialty Start Date End Date Cedrick Terrazas DO [address] [place] [address] PCP - General Internal Medicine 06/25/21
[2024-07-21 10:14] LABS: Anion Gap 14 (12-20); Blood Urea Nitrogen 19 mg/dL (9-16); Calcium 9.4 mg/dL (8.4-10.2); Carbon Dioxide 24 mmol/L (22-29); Chloride 105 mmol/L (96-108); Cholesterol 128 mg/dL (<200); Estimated Glomerular Filt Rate > 60; Glucose Random 231 mg/dL (60-115); HDL Cholesterol 34 mg/dL (>40); LDL Cholesterol Calculated 62 mg/dL (<100); Potassium 3.7 mmol/L (3.3-5.1); Sodium 139 mmol/L (135-145); Triglycerides 163 mg/dL (<150)
== END 2024-07-21 08:43 | disposition home or self-care (01) ==
LOC: HO.LAB 08:42
PROVIDERS: PCP Internal Medicine; Visit Provider Internal Medicine Hypertension Specialist
DX: N18.9 Chronic kidney disease, unspecified (principal); R06.02 Shortness of breath; I25.10 Atherosclerotic heart disease of native coronary artery without angina pectoris; I10 Essential (primary) hypertension
CPT/HCPCS: 36415; 80048; 80061

== ENCOUNTER 2025-02-02 14:18 | Outpatient (REF) | payer MEDICARE, SELFPAY ==
[2025-02-02 16:08] LABS: Hematocrit 43.2 % (42.0-52.0); Hemoglobin 14.7 g/dl (14.0-18.0); Mean Corpuscular HGB Conc 34.0 g/dl (31.0-36.0); Mean Corpuscular Hemoglobin 30.6 pg (27.0-33.0); Mean Corpuscular Volume 89.8 fL (80.0-98.0); NRBC Abs Auto 0.000 X10*3/uL (0.0-0.012); NRBC Pct Auto 0.0 /100WBC (0.0-0.2); Platelet Count 214 X10*3/uL (160-400); Red Blood Count 4.81 X10*6/uL (4.60-5.80); White Blood Count 10.1 X10*3/uL (4.8-10.8)
[2025-02-02 16:23] LABS: INTERNATIONAL NORM RATIO 0.8 (0.9-1.1); Prothrombin Time 10.1 SEC (11.2-13.5)
[2025-02-02 16:40] LABS: Anion Gap 11 (12-20); Blood Urea Nitrogen 15 mg/dL (9-16); Calcium 9.3 mg/dL (8.4-10.2); Carbon Dioxide 30 mmol/L (22-29); Chloride 105 mmol/L (96-108); Estimated Glomerular Filt Rate > 60; Potassium 3.1 mmol/L (3.3-5.1); Sodium 143 mmol/L (135-145)
== END 2025-02-02 14:19 | disposition home or self-care (01) ==
LOC: HO.LAB 14:18
PROVIDERS: PCP Internal Medicine; Visit Provider Internal Medicine
DX: I10 Essential (primary) hypertension (principal); I25.10 Atherosclerotic heart disease of native coronary artery without angina pectoris; F17.210 Nicotine dependence, cigarettes, uncomplicated; Z79.899 Other long term (current) drug therapy
CPT/HCPCS: 36415; 80048; 85027; 85610; 99212

== ENCOUNTER 2025-02-02 14:18 | Outpatient (AMB) | payer MEDICARE, SELFPAY ==
--- NOTE | 2025-02-02 14:25 | A.OFFVIS_ITS ---
Vital Signs 02/02/25 14:27 Height 5 ft 6 in Weight 193 lb 9.054 oz BMI 31.2 BP 140/70 H Blood Pressure Location Lt brachial Position Sitting Pulse 63 Pulse Source Monitor Intake Visit Reasons: 8m follow up Electromechanical Technician Required: No Electromechanical Technician Services: Electromechanical Technician Offered & Declined Accompanied by: Daughter Allergies No Known Allergies Allergy (Verified 07/14/24 15:05) Medication List - Last Reconciled 02/02/25 by Nando Bowen MD aspirin 81 mg PO DAILY atorvastatin (Lipitor) 80 mg PO QPM carvedilol (Coreg) 6.25 mg PO BID 90 days finasteride 5 mg PO DAILY furosemide 20 mg PO DAILY metformin 500 mg PO DAILY nifedipine ER 30 mg PO DAILY omeprazole 20 mg PO DAILY tamsulosin 0.4 mg PO DAILY HPI Comments Details: Osman returns for follow-up. Originally seen in consultation regarding leg swelling and shortness of breath. Patient only speaks Tajik and daughter is accompanying him for interpretation. Essentially, no previous cardiac history including coronary disease or myocardial infarction or cardiomyopathy or a nything along those lines. Chronic smoker and still smokes. For the last several years, he has felt short of breath with activity. No anginal-type symptoms. He has also been having some leg swelling over the last few months. Nephrology as put him on some Lasix and after that he has felt better. Otherwise, he also underwent a chest CT scan due to smoking history and that shows coronary calcification. Overall, he is just about the same as before. Continues to smoke. Apparently went to [place] we are going to summer months and he was not doing much and mostly sedentary. He has not complained of any clear-cut angina. [facility] Surgical History History of cholecystectomy History of appendectomy Family History Brother Stroke Social History Alcohol intake: current Alcohol intake frequency: holidays/special occasions only Tobacco use type: Cigarette Review of Systems Const Denies chills, Denies fatigue, Denies fever(s), Denies frequent falls, Denies weakness, Denies weight gain and Denies weight loss ENT Denies dizziness Card Denies chest pain, Denies leg edema, Denies lightheadedness, Denies palpitations, Denies dyspnea and Denies dyspnea on exertion Resp Denies cough, Denies dyspnea and Denies dyspnea on exertion GI Denies hematochezia Musc Denies abnormal gait, Denies muscle weakness, Denies numbness, Denies radiating pain into limb and Denies tingling Neuro Denies abnormal gait, Denies dizziness, Denies frequent falls, Denies numbness, Denies tingling and Denies weakness Endo Denies fatigue and Denies palpitations Physical Exam Vital Signs: Last Vital Signs Pulse 63 02/02/25 14:27 BP 140/70 H 02/02/25 14:27 BMI result Body Mass Index 31.2 Const General: comfortable and no acute distress Orientation/consciousness: patient oriented x3 HEENT Other: Unremarkable Head: Yes normal to inspection Neck Neck: Yes normal visual inspection Chest Chest palpation & inspection: normal inspection of the chest Resp Auscultation: wheezes and diminished lung sounds Cardio Palpation: normal PMI Heart sounds: S1 normal heart sound present, S2 normal heart sound present, no gallops, no murmurs and no rubs GI Palpation (GI): Soft to palpation Back/Spine/Pelvis Other: unremarkable Skin General skin exam: no rashes or lesions noted Neuro General: patient oriented x3 Extrem General: Yes normal to inspection Psych Mental Status: mental status grossly normal Assessment & Plan Assessment & Plan (1) Coronary artery calcification: Code(s): I25.10 - Atherosclerotic heart disease of [place] coronary artery without angina pectoris Category: Medical Plan: Chest CT scan shows severe coronary artery calcification as well as moderate aortic calcification. In the exercise stress test, he was able to do only 4 METS on Dawson protocol; reached 90% of target heart rate. No angina. No definitive EKG evidence of ischemia. Perfusion part was also unremarkable. In today's EKG, there are new inferior wall T inversions. Overall, based on the above he certainly has coronary disease but not clear if he has got any multivessel disease or left main. He is very sedentary, continues to smoke and is hypertensive. We discussed about various testing options. He is unable to exercise on the treadmill adequately; with active wheezing, cannot do Lexiscan. I do not believe he is a good Dobutamine candidate either due to suboptimal blood pressure control. Hence we decided on a diagnostic catheterization and daughter agrees with that. In a prior [facility] echocardiogram, preserved LVEF and no overt findings. (2) HTN (hypertension): Code(s): I10 - Essential (primary) hypertension Category: Medical Plan: Currently, listed to be on carvedilol, nifedipine. No changes made. Plan Discussed with daughter who came for appointment. Orders: Orders Cardiac Cath LT Diagnostic Today I25.10 - Atherosclerotic heart disease of [place] coronary artery without angina pectoris Complete Blood Count no Diff Today I25.10 - Atherosclerotic heart disease of [place] coronary artery without angina pectoris Basic Metabolic Panel Today I25.10 - Atherosclerotic heart disease of [place] coronary artery without angina pectoris Prothrombin Time INR Today I25.10 - Atherosclerotic heart disease of [place] coronary artery without angina pectoris Coding Level of Care Code Est Pt Level 5 (21755) Complex EM visit Add On G2211 Diagnoses Coronary artery calcification I25.10 HTN (hypertension) I10
[2025-02-02 14:27] VITALS: BP 140/70; PULSE 63; BMI 31.2
== END 2025-02-02 15:14 | disposition home or self-care (01) ==
LOC: HO.HCS 14:19
PROVIDERS: PCP Internal Medicine; Visit Provider Internal Medicine
DX: I25.10 Atherosclerotic heart disease of native coronary artery without angina pectoris (principal); I10 Essential (primary) hypertension
CPT/HCPCS: 99214; G2211

== ENCOUNTER → 2025-03-02 23:59 | Outpatient (BNV) | payer MEDICARE, SELFPAY | PROVIDERS: PCP Internal Medicine; Visit Provider Internal Medicine Cardiovascular Disease | DX: I25.118 Atherosclerotic heart disease of native coronary artery with other forms of angina pectoris (principal) | CPT/HCPCS: 92943; 92978; 93458; 99152 ==